=== PATIENT | female | born 1955 | race Caucasian/White ===

== ENCOUNTER 2018-04-29 06:55 | Emergency (ER) | payer OTHER, SELFPAY ==
[2018-04-29 06:55] VITALS: BP 156/81; PULSE 77; RESP 16; TEMP 36.6; O2SAT 96; BMI 26.5
--- NOTE | 2018-04-29 07:25 | ED.DCSUM_ITS ---
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 She indicates she is better when she rests if she tries to walk she has pain she is noticed note disability, she is able to forward fully move her left lower extremity at the hip knee dorsi and plantar flexion is intact no numbness weakness or paresthesias denies trauma Physical Examination: [] 130/80, General, no distress resting comfortably HEENT is generally unremarkable The neck is supple no adenopathy Cardiovascular, regular rate and rhythm Lungs, clear bilateral Abdomen, soft nontender Extremities, no clubbing cyanosis or edema, she is a vague pain to the mid portion of the calf posteriorly the flush she has portion. There is no instability deformity or warmth bruising contusion she has full range of motion of the left hip knee normal dorsi and plantar flexion against resistance there is no signs of Achilles tear she is able to stand and walk and has some di scomfort when she walks much improved when she is at rest Neurologic, awake alert answering questions appropriately moving all 4 extremities Test Results: [] Discussed x-rays the patient declined that she has no pain over any of the bony prominences of her lower extremity she understands the concept of injury and other occult processes, she will follow-up with Dr. Dickerson ort hopedics she is placed off work as she is constantly walks and to return to light duty until followed up Tylenol is her preference for pain management Emergency Department Course and Treatment: [] Treatment Plan: [] Disposition: [] Home stable Impression: [] left Calf strain This note was generated with [employer] dictation software. It may contain incorrect words, spelling, and punctuation that were not noted in review of the chart prior to signing ED Disposition - Plan for ED Patient: Chief Complaint: Lower Extremity Injury Referrals: Franklin Thurman MD [Primary Care Provider] -
--- NOTE | 2018-04-29 07:25 | ED.DEP ---
ED Disposition - Plan for ED Patient: Chief Complaint: Lower Extremity Injury Instructions: ED Contusion Lower Ext Referrals: Franklin Thurman MD [Primary Care Provider] - Jeronimo Dickerson MD [STAFF PHYSICIAN] -
== END 2018-04-29 08:01 | disposition home or self-care (01) ==
PROVIDERS: Emergency Provider Emergency Medicine; Family Provider Family Medicine; PCP Family Medicine
DX: S86.112A Strain of other muscle(s) and tendon(s) of posterior muscle group at lower leg level, left leg, initial encounter (principal); X58.XXXA Exposure to other specified factors, initial encounter; Y93.F9 Activity, other caregiving; Y92.129 Unspecified place in nursing home as the place of occurrence of the external cause; Y99.0 Civilian activity done for income or pay
CPT/HCPCS: 99283